=== PATIENT | male | born 1990 | race Caucasian/White ===

== ENCOUNTER 2019-05-18 20:51 | Emergency (ER) | payer BC ==
--- NOTE | 2019-05-18 21:34 | RAD ---
XR Ankle Rt 3 View STANDARD HISTORY: Trauma to ankle COMPARISON: None. FINDINGS: There are no signs of fracture or dislocation. There is some minimal lucency adjacent to th e tip of the fibula but this appears more chronic in nature and I see no soft tissue swelling in this region. No joint effusion is identified. IMPRESSION: No definite signs of acute injury.
== END 2019-05-18 22:00 | disposition home or self-care (01) ==
LOC: SCSER 20:51
DX: S93.401A Sprain of unspecified ligament of right ankle, initial encounter (principal); X50.1XXA Overexertion from prolonged static or awkward postures, initial encounter; Y93.67 Activity, basketball